=== PATIENT | female | born 1965 | race American Indian/Alaskan Native ===

== ENCOUNTER 2020-02-11 19:59 | Emergency (ER) | payer SELFPAY ==
--- NOTE | 2020-02-11 20:43 | Event Note ---
ED Screening Note ED Screening Note: SP GLF, MECHANICAL AT THE STORE CO R KNEE, L ANKLE AND RUE PAIN This initial assessment/diagnostic orders/clinical plan/treatment(s) is/are subject to change based on patients health status, clinical progression and re- assessment by fellow clinical providers in the ED. Further treatment and workup at subsequent clinical providers discretion. Patient/guardian urged not to elope from the ED as their condition may be serious if not clinically assessed and managed. Initial orders include: XRAY
[2020-02-11 20:53] VITALS: BP 119/93
--- NOTE | 2020-02-11 21:31 | XRay Report ---
RIGHT KNEE 3 VIEWS INDICATION / CLINICAL INFORMATION: Fall with right knee pain. COMPARISON: None available. FINDINGS: BONES / JOINT(S): There is no evidence of fracture, subluxation or joint effusion.. There are minimal degenerative changes. There is an ovoid bone island in the proximal tibial metaphysis medially. SOFT TISSUES: No significant abnormality. ADDITIONAL FINDINGS: None. IMPRESSION: No acute abnormality. Signer Name: Antonio Perez MD Signed: 02/11/2020 9:27 PM Workstation Name: [id number]
--- NOTE | 2020-02-11 21:32 | XRay Report ---
RIGHT FOREARM 2 VIEWS INDICATION / CLINICAL INFORMATION: Fall with right forearm pain. COMPARISON: None available. FINDINGS: BONES / JOINT(S): No acute fracture or subluxation. No significant arthritis. SOFT TISSUES: No significant abnormality. ADDITIONAL FINDINGS: None. IMPRESSION: No acute abnormality. Signer Name: Antonio Perez MD Signed: 02/11/2020 9:28 PM Workstation Name: [id number]
--- NOTE | 2020-02-11 21:33 | XRay Report ---
LEFT ANKLE 3 VIEWS INDICATION / CLINICAL INFORMATION: Fall with left ankle pain. COMPARISON: None available. FINDINGS: BONES / JOINT(S): No acute fracture or subluxation. There is a tiny spur at the insertion of the Achi lles tendon on the calcaneus. SOFT TISSUES: No significant abnormality. ADDITIONAL FINDINGS: None. IMPRESSION: No acute abnormality. Signer Name: Antonio Perez MD Signed: 02/11/2020 9:28 PM Workstation Name: [id number]
--- NOTE | 2020-02-12 03:32 | Emergency Department Report ---
ED Fall HPI - General Chief Complaint: Fall Stated Complaint: FALL/KNEE PAIN Time Seen by Provider: 02/11/20 20:40 Source: patient, EMS Mode of arrival: Wheelchair - History of Present Illness MD Complaint: fall - Related Data Previous Rx's Medication Instructions Recorded Last Taken Type Ketorolac [Toradol] 10 mg PO Q6H PRN #14 tablet 02/12/20 Unknown Rx methOCARBAMOL [Robaxin TAB] 750 mg PO Q8H #14 tablet 02/12/20 Unknown Rx Allergies Allergy/AdvReac Type Severity Reaction Status Date / Time No Known Allergies Allergy Unverified 02/11/20 20:53 ED Review of Systems ROS: Stated complaint: FALL/KNEE PAIN Other details as noted in HPI ED Past Medical Hx - Past Medical History Previous Medical History?: Yes Additional medical history: PE - Social History Smoking Status: Never Smoker Substance Use Type: None - Medications Home Medications: Home Medications Medication Instructions Recorded Confirmed Last Taken Type Ketorolac [Toradol] 10 mg PO Q6H PRN #14 tablet 02/12/20 Unknown Rx methOCARBAMOL [Robaxin TAB] 750 mg PO Q8H #14 tablet 02/12/20 Unknown Rx ED Physical Exam - General Limitations: Physical Limitation ED Course Vital Signs 02/11/20 20:51 Temperature 97.5 F L Pulse Rate 71 Respiratory 20 Rate Blood Pressure 119/93 O2 Sat by Pulse 100 Oximetry ED Medical Decision Making - Radiology Data Radiology results: report reviewed Patient Name: FELICITY JARQUIN Gender: Female Date of : 1965 Home Phone: Referring Provider: SHARITA DA SILVA Organization: [facility] Accession Number: [id number] Requested Date: February 11, 2020 20:40 Report Status: Final Requested Procedure: 1 Procedure Description: XR knee 3V RT Modality: XR Findings Reporting MD: Antonio Perez Dictation Time: February 11, 2020 20:27 Plumbing Mechanic: Not available Farm Loan Inspector Date: RIGHT KNEE 3 VIEWS INDICATION / CLINICAL INFORMATION: Fall with right knee pain. COMPARISON: None available. FINDINGS: BONES / JOINT(S): There is no evidence of fracture, subluxation or joint effusion.. There are minimal degenerative changes. There is an ovoid bone island in the proximal tibial metaphysis medially. SOFT TISSUES: No significant abnormality. ADDITIONAL FINDINGS: None. IMPRESSION: No acute abnormality. Signer Name: Antonio Perez MD Signed: 02/11/2020 8:27 PM Workstation Name: [id number] Patient Name: FELICITY JARQUIN Gender: Female Date of : 1965 Home Phone: Referring Provider: SHARITA DA SILVA Organization: [facility] Accession Number: [id number] Requested Date: February 11, 2020 20:40 Report Status: Final Requested Procedure: 1 Procedure Description: XR forearm RT Modality: XR Findings Reporting MD: Antonio Perez Dictation Time: February 11, 2020 20:28 Plumbing Mechanic: Not available Farm Loan Inspector Date: RIGHT FOREARM 2 VIEWS INDICATION / CLINICAL INFORMATION: Fall with right forearm pain. COMPARISON: None available. FINDINGS: BONES / JOINT(S): No acute fracture or subluxation. No significant arthritis. SOFT TISSUES: No significant abnormality. ADDITIONAL FINDINGS: None. IMPRESSION: No acute abnormality. Signer Name: Antonio Perez MD Signed: 02/11/2020 8:28 PM Workstation Name: [email or web address] Name: FELICITY JARQUIN Gender: Female Date of : 1965 Home Phone: Referring Provider: SHARITA EID Organization: [facility] Accession Number: [id number] Requested Date: February 11, 2020 20:40 Report Status: Final Requested Procedure: 1 Procedure Description: XR forearm RT Modality: XR Findings Reporting MD: Antonio Perez Dictation Time: February 11, 2020 20:28 Plumbing Mechanic: Not available Farm Loan Inspector Date: RIGHT FOREARM 2 VIEWS INDICATION / CLINICAL INFORMATION: Fall with right forearm pain. COMPARISON: None available. FINDINGS: BONES / JOINT(S): No acute fracture or subluxation. No significant arthritis. SOFT TISSUES: No significant abnormality. ADDITIONAL FINDINGS: None. IMPRESSION: No acute abnormality. Signer Name: Antonio Perez MD Signed: 02/11/2020 8:28 PM Workstation Name: [id number] Patient Name: FELICITY JARQUIN Gender: Female Date of : 1965 Home Phone: Referring Provider: SHARITA DA SILVA Organization: [facility] Accession Number: [id number] Requested Date: February 11, 2020 20:40 Report Status: Final Requested Procedure: 1 Procedure Description: XR ankle 3+V LT Modality: XR Findings Reporting MD: Antonio Perez Dictation Time: February 11, 2020 20:28 Plumbing Mechanic: Not available Farm Loan Inspector Date: LEFT ANKLE 3 VIEWS INDICATION / CLINICAL INFORMATION: Fall with left ankle pain. COMPARISON: None available. FINDINGS: BONES / JOINT(S): No acute fracture or subluxation. There is a tiny spur at the insertion of the Achilles tendon on the calcaneus. SOFT TISSUES: No significant abnormality. ADDITIONAL FINDINGS: None. IMPRESSION: No acute abnormality. Signer Name: Antonio Perez MD Signed: 02/11/2020 8:28 PM Workstation Name: [id number] - Medical Decision Making 34-year-old female status post trip and fall in stool landing on right side with normal x-rays however complete worsening body aches and pain from contusion. No loss of consciousness. She is alert and oriented x3 of sound judgment. Advised on the need for ice therapy and anti-laboratories to help pain relief. She normal-appearing without any signs or symptoms of serious injury. Neurologically intact Critical care attestation.: If time is entered above; I have spent that time in minutes in the direct care of this critically ill patient, excluding procedure time. ED Disposition Clinical Impression: Fall from ground level, Multiple contusions Disposition: DC-01 TO HOME OR SELFCARE Is pt being admited?: No Does the pt Need Aspirin: No Condition: Stable Instructions: Fall Prevention (ED), Contusion in Adults (ED) Prescriptions: methOCARBAMOL [Robaxin TAB] 750 mg PO Q8H #14 tablet Ketorolac [Toradol] 10 mg PO Q6H PRN #14 tablet PRN Reason: Pain Referrals: PRIMARY [facility] [Primary Care Provider] - 3-5 Days [facility] [Provider Group] - 3-5 Days
== END 2020-02-12 04:15 | disposition home or self-care (01) ==
LOC: ED 19:59
DX: S80.01XA Contusion of right knee, initial encounter (principal); S90.02XA Contusion of left ankle, initial encounter; S50.11XA Contusion of right forearm, initial encounter; Z79.899 Other long term (current) drug therapy; W17.89XA Other fall from one level to another, initial encounter; Y93.89 Activity, other specified; Y92.89 Other specified places as the place of occurrence of the external cause; Y99.8 Other external cause status